=== PATIENT | male | born 1935 | race Caucasian/White ===

== ENCOUNTER → 2016-04-03 | Outpatient (CLI) | payer MEDICARE, BC ==
[~2016-04-03] MED LIST: ACETAMINOPHEN PR; BETA PROSTATE; BETA PROSTATE PO; IBUPROFEN PO; METHADONE PO; MUCINEX DM1 TAB.SR . PO; PHENERGAN PR; PROSCAR5 MG PO; STOOL SOFTENER PO; VOLTAREN75 MG PO; Z PAK; ZETIA PO; ZITHROMAX PO; [UNRECOGNIZED DRUG - OTHER]
--- NOTE | ~2016-04-03 | US5 ---
[facility] A Service of [facility] & [facility] RADIOLOGY TEXT RESULTS PATIENT: YENNIFER SERRA LOCATION: SNIV : 35 UNIT #: [id number] AGE: [address]: Hyacinth Benitez SEX: M ORDER DR: [id number] [address] [address] [id number] O MR#: [id number] Acc #: [id number] NAME: YENNIFER SERAR : 1935 SEX: M STUDY DATE/TIME: 04/03/2016 11:59 UNIT: SNIV ROOM: STUDY DESCRIPTION: US Abdominal Complete Attending Physician: Hyacinth Benitez A.P.R.N. Referring Physician: Hyacinth Benitez A.P.R.N. Ordering Physician: Hyacinth Benitez A.P.R.N. Primary Care Physician: Miguel Ash M.D. MEDICAL IMAGING REPORT This report is preliminary unless electronic signature is present. EXAM Abdominal aortic aneurysm screening, 04/03/2016. HISTORY Abdominal aortic aneurysm. FINDINGS The proximal aorta measures 1.86 x 2.2 cm. The mid aorta measures 1.98 x 2.47 cm. The distal aorta measures 4.1 x 5 cm. The aorta has the following flow velocities: proximal 33 cm/sec, mid 27 cm/sec, distal 10 cm/sec. There are triphasic wave forms throughout the aorta. IMPRESSION Positive exam for an infrarenal abdominal aortic aneurysm, measuring 4.1 x 5 cm at its greatest diameter. Dictated by... Bebeto Ramirez M.D. THIS IS AN ELECTRONICALLY VERIFIED REPORT Bebeto Ramirez M.D. at 04/06/2016 3:12 PM Tere TD: 04/03/2016 14:35 JOB #: [id number] MEDICAL IMAGING REPORT
--- NOTE | ~2016-04-03 | US37 ---
[facility] A Service of [facility] & [facility] RADIOLOGY TEXT RESULTS PATIENT: YENNIFER SERRA LOCATION: SNIV : 35 UNIT #: [id number] AGE: [address]: Hyacinth Benitez SEX: M ORDER DR: [id number] [address] [address] [id number] O MR#: [id number] Acc #: [id number] NAME: YENNIFER SERRA : 1935 SEX: M STUDY DATE/TIME: 04/03/2016 12:11 UNIT: SNIV ROOM: STUDY DESCRIPTION: US Carotid W/Doppler Bilateral Attending Physician: Hyacinth Benitez A.P.R.N. Referring Physician: Hyacinth Benitez A.P.R.N. Ordering Physician: Hyacinth Benitez A.P.R.N. Primary Care Physician: Miguel Ash M.D. MEDICAL IMAGING REPORT This report is preliminary unless electronic signature is present. EXAM Bilateral carotid duplex, 04/03/2016. HISTORY Follow-up from 09/23/2015 with known bilateral carotid atherosclerosis. FINDINGS There is patent flow seen throughout the right common carotid, internal carotid and external carotid arteries. There is some heterogeneous, irregular atherosclerosis noted in the proximal aspect of the internal carotid artery and external carotid artery. The right common carotid artery peak velocity is 76 cm/sec. The right internal carotid artery peak velocity is 56/10 cm/sec, mid 77/21 cm/sec, and distal 84/24 cm/sec. The right external carotid artery has a peak velocity of 61 cm/sec, vertebral artery 39 cm/sec. The right ICA:CCA ratio is 1.09. The left carotid artery has patent flow seen throughout the common carotid, internal carotid and external carotid arteries. There is some irregular heterogeneous and echogenic plaque seen in the left carotid bifurcation, extending into the proximal aspect of the left internal carotid artery. The left common carotid artery peak velocity is 81 cm/sec. The left internal carotid artery peak systolic/end diastolic velocities are: proximal 131/35 cm/sec, mid 140/32 cm/sec, and distal 144/26 cm/sec. The left external carotid artery has a peak velocity of 273 cm/sec, and vertebral artery 40 cm/sec. The left ICA:CCA ratio is 1.77. IMPRESSION 1. There is minimal to mild atherosclerosis of the right carotid artery, which is not hemodynamically significant (less than 50%). 2. The left carotid artery has moderate atherosclerosis, consistent with 50% to 69% stenosis by duplex criteria. These findings are unchanged from the 09/2015 study. [facility] A Service of [facility] RADIOLOGY TEXT RESULTS PATIENT: YENNIFER SERRA LOCATION: [facility] ALMAT #: [id number] : 35 UNIT #: [id number] AGE: [address]: Hyacinth Benitez SEX: M ORDER DR: 3. Moderate to high-grade stenosis of the left external carotid artery. 4. Vertebral flow is antegrade bilaterally. Dictated by... Bebeto Ramirez M.D. THIS IS AN ELECTRONICALLY VERIFIED REPORT Bebeto Ramirez M.D. at 04/06/2016 3:11 PM Tere TD: 04/03/2016 14:40 JOB #: [id number] MEDICAL IMAGING REPORT
== END | disposition home or self-care (01) ==
LOC: SNIV 09:59
DX: I65.23 Occlusion and stenosis of bilateral carotid arteries (principal); I71.4 Abdominal aortic aneurysm, without rupture
CPT/HCPCS: 76700; 93880

== ENCOUNTER → 2016-04-12 | Outpatient (CLI) | payer MEDICARE, BC ==
--- NOTE | ~2016-04-12 | CT4 ---
[facility] A Service of [facility] RADIOLOGY TEXT RESULTS PATIENT: YENNIFER SERRA [facility] UNIT #: [id number] AGE: [address]: Hyacinth Benitez SEX: M ORDER DR: [id number] [facility] [address] [place], [place] [address] [id number] O MR#: [id number] Acc #: [id number] NAME: YENNIFER SERRA. : 1935 SEX: M STUDY DATE/TIME: 04/12/2016 14:47 [facility] RO[facility]: STUDY DESCRIPTION: CT Abd and Pelv Wo Cont Attending Physician: Generic Doctor Not In System Ordering Physician: Physician Non-Staff [facility] This report is preliminary unless electronic signature is present EXAM CT abdomen and pelvis without contrast 04/12/2016 INDICATIONS 80-year-old male with followup aortic aneurysm. TECHNIQUE CT of the abdomen and pelvis was performed without contrast. Coronal and sagittal reformatted images were obtained. This CT exam was performed with one or more of the following radiation dose reduction techniques: automatic exposure control, adjustment of mA and/or kV according to patient size, and iterative reconstruction. COMPARISON STUDIES Comparison with 11/14/2011 FINDINGS There is a stable micronodule in the lingula. CT ABDOMEN: The liver is unremarkable. Cholelithiasis. Spleen is unremarkable. The kidneys are unremarkable. Stable adrenal adenomas bilaterally. Pancreas unremarkable. There is an increase in size of the patient's aortic aneurysm measuring 4.5 cm in greatest AP dimension. Previously it measured about 3.1 cm in greatest AP dimension. Slight interval increase in size of distal right common iliac artery aneurysm measuring about 2.2 cm. There is also an aneurysm more proximally in the right common iliac artery measuring about 2.3 cm which is also slightly increased in size. CT PELVIS: Extensive sigmoid diverticulosis. There is no free fluid. Prostatomegaly. There are bilateral inguinal hernias. The right inguinal hernia contains only fat. The left inguinal hernia contains mostly fat [facility] A Service of [facility] RADIOLOGY TEXT RESULTS PATIENT: YENNIFER SERRA LOCATION: [facility] : 35 UNIT #: [id number] AGE: [address]: Hyacinth Benitez SEX: M ORDER DR: but does contain a small knuckle of colon proximally. The bone windows demonstrate degenerative changes lumbar spine. IMPRESSION 1. Increase in size of abdominal aortic aneurysm measuring 4.5 cm in greatest AP dimension. Previously it measured 3.1 cm in greatest AP dimension in 2011. 2. Slight interval increase in size of the right common iliac artery aneurysms. 3. Additional findings as described. Dictated by... Nicola Chirinos M.D. THIS IS AN ELECTRONICALLY VERIFIED REPORT Nicola Chirinos M.D. at 04/13/2016 4:42 PM Cesar TD: 04/12/2016 18:51 JOB #: [id number] MEDICAL IMAGING REPORT COPY
== END | disposition home or self-care (01) ==
LOC: CCAT 13:45
DX: I65.23 Occlusion and stenosis of bilateral carotid arteries (principal); I71.4 Abdominal aortic aneurysm, without rupture; I72.3 Aneurysm of iliac artery
CPT/HCPCS: 74176